=== PATIENT | female | born 1960 | race Caucasian/White ===

== ENCOUNTER → 2023-09-14 07:05 | Outpatient (REF) | payer BC, SELFPAY ==
[2023-09-14 07:57] LABS: % Eosinophils 5.9 % (0-6); % Lymphocytes 34.3 % (20.5-51.1); % Monocytes 8.2 % (1.7-9.3); % Neutrophils 50.6 % (42.2-75.2); Absolute Eosinophils 0.2 10^3/uL (0-0.7); Absolute Lymphocytes 1.3 10^3/uL (1.2-3.4); Absolute Monocytes 0.3 10^3/uL (0.1-0.6); Hematocrit 36.3 % (37.0-47.0); Hemoglobin 12.1 g/dL (12.0-16.0); Mean Corp Hgb Conc. 33.3 g/dL (33.0-37.0); Mean Corpuscular Hgb 31.8 pg (27.0-31.0); Mean Corpuscular Volume 95.3 fL (81.0-99.0); Mean Platelet Volume 10.1 fL (7.4-10.4); Nucleated Red Blood Cells % 0 %; Platelet Count 137 10^3/uL (130-400); Red Blood Cell Count 3.81 10^6/uL (4.20-5.40); Red Cell Dist. Width 13.5 % (11.5-14.5); White Blood Cell Count 3.9 10^3/uL (4.8-10.8)
[2023-09-14 08:29] LABS: ALT (SGPT) 34 U/L (0-35); AST (SGOT) 30 U/L (14-36); Albumin 4.2 g/dl (3.5-5.0); Alkaline Phosphatase 80 U/L (38-126); Blood Urea Nitrogen 19 mg/dl (7-17); Calcium 10.1 mg/dl (8.4-10.2); Carbon Dioxide 29 mmol/L (22-30); Chloride 104 mmol/L (98-107); Glucose 93 mg/dl (70-99); HDL Cholesterol 92 mg/dl; LDL Cholesterol, Calculated 83 mg/dl; Sodium 139 mmol/L (135-145); Total Bilirubin 0.5 mg/dl (0.2-1.3); Total Cholesterol 187 mg/dl (50-199); Total Protein 6.6 g/dl (6.3-8.2); Triglyceride 62 mg/dl (10-149); Very Low Density Lipoprotein 12 mg/dl (0-30); eGFR > 60.00
[2023-09-14 08:36] LABS: Potassium 4.3 mmol/L (3.5-5.1)
[2023-09-14 10:09] LABS: TSH Reflex To Free T4 1.86 uIU/ml (0.47-4.68)
== END ==
LOC: REG 07:05
PROVIDERS: ATTENDING PHYSICIAN Nurse Practitioner Adult Health
DX: Z00.00 Encounter for general adult medical examination without abnormal findings (principal)
CPT/HCPCS: 36415; 80053; 80061; 84443; 85025

== ENCOUNTER → 2023-10-18 14:48 | Outpatient (REF) | payer BC, SELFPAY ==
[2023-10-27 08:23] LABS: HPV, High Risk Not Detected; HPV, High Risk Source Cervical
== END ==
LOC: CPAP 14:48
PROVIDERS: ATTENDING PHYSICIAN Obstetrics & Gynecology Gynecology
DX: Z01.419 Encounter for gynecological examination (general) (routine) without abnormal findings (principal)
CPT/HCPCS: 87624

== ENCOUNTER → 2023-10-31 16:01 | Outpatient (REF) | payer BC, SELFPAY | LOC: WDC 16:01 | PROVIDERS: ATTENDING PHYSICIAN Obstetrics & Gynecology Gynecology | DX: Z12.31 Encounter for screening mammogram for malignant neoplasm of breast (principal); Z01.419 Encounter for gynecological examination (general) (routine) without abnormal findings | CPT/HCPCS: 77063; 77067 ==

== ENCOUNTER → 2024-09-12 07:04 | Outpatient (REF) | payer BC, SELFPAY ==
[2024-09-12 08:01] LABS: % Basophils 1.2 % (0-2); % Eosinophils 7.1 % (0-6); % Immature Granulocytes 0.3 % (0-0.5); % Lymphocytes 38.3 % (20.5-51.1); % Monocytes 7.1 % (1.7-9.3); Absolute Eosinophils 0.2 10^3/uL (0-0.7); Absolute Lymphocytes 1.2 10^3/uL (1.2-3.4); Absolute Monocytes 0.2 10^3/uL (0.1-0.6); Absolute Neutrophils 1.5 10^3/uL (1.4-6.5); Hematocrit 37.9 % (37.0-47.0); Hemoglobin 12.5 g/dL (12.0-16.0); Mean Corpuscular Hgb 31.3 pg (27.0-31.0); Mean Platelet Volume 9.9 fL (7.4-10.4); Nucleated Red Blood Cells % 0 %; Platelet Count 138 10^3/uL (130-400); Red Blood Cell Count 3.99 10^6/uL (4.20-5.40); Red Cell Dist. Width 13.3 % (11.5-14.5); White Blood Cell Count 3.2 10^3/uL (4.8-10.8)
[2024-09-12 08:15] LABS: ALT (SGPT) 27 U/L (0-35); AST (SGOT) 28 U/L (14-36); Albumin 4.1 g/dl (3.5-5.0); Alkaline Phosphatase 90 U/L (38-126); Blood Urea Nitrogen 17 mg/dl (7-17); Calcium 10.1 mg/dl (8.4-10.2); Carbon Dioxide 29 mmol/L (22-30); Chloride 107 mmol/L (98-107); Glucose 92 mg/dl (70-99); HDL Cholesterol 97 mg/dl; LDL Cholesterol, Calculated 93 mg/dl; Potassium 4.5 mmol/L (3.5-5.1); Sodium 142 mmol/L (135-145); Total Bilirubin 0.6 mg/dl (0.2-1.3); Total Cholesterol 201 mg/dl (50-199); Total Protein 6.6 g/dl (6.3-8.2); Triglyceride 58 mg/dl (10-149); Very Low Density Lipoprotein 11 mg/dl (0-30); eGFR > 60.00
[2024-09-12 08:45] LABS: TSH Reflex To Free T4 1.46 uIU/ml (0.47-4.68)
== END ==
LOC: REG 07:04
PROVIDERS: ATTENDING PHYSICIAN Nurse Practitioner Adult Health
DX: Z00.00 Encounter for general adult medical examination without abnormal findings (principal)
CPT/HCPCS: 36415; 80053; 80061; 84443; 85025

== ENCOUNTER 2024-10-17 08:29 | Emergency (ER) | payer BC, SELFPAY ==
[2024-10-17 08:31] VITALS: BP 159/94
--- NOTE | 2024-10-17 08:48 | ED.MUSCINJ ---
HPI-Injury
General
Chief Complaint: Musculo-Skeletal Complaint
Source: patient
Exam Limitations: none
Time Seen by Provider: 10/17/24 08:34
History of Present Illness-Injury
Initial Injury comments:
64-year-old female otherwise healthy presents complaining of worsening bilateral neck pain that radiates into the skull for the past 6 days. She was seen at an urgent care and was prescribed diclofenac. She has been taking this without relief.
She denies arm numbness or weakness. No associated chest pain or fever. She states she is having trouble sleeping because of the stiffness as well as moving her neck. No known injury. Note chest pain or shortness of breath. No other complaints
at this time
Past History
Past History
ED Past Medical History: None
ED Past Surgical History: and Other
Social History
Tobacco: Non-smoker
Phy Exam
Physical Exam
Physical Exam:
General: Well-appearing female no acute respiratory distress
HEENT normocephalic atraumatic
Musculoskeletal exam: Diffuse paraspinous tenderness bilaterally about the cervical spine and the base of the skull. She is also tender over the midline of the cervical spine. There is decreased range of motion in all directions of the cervical
spine good range of motion all extremities
Neurologic: Good strength to the upper lower extremities. No meningeal signs
Heart: Regular rate and rhythm
Lungs: Clear
Injury Course
Orders/Labs/Results
Orders:
Orders
10/17/24 08:45
Diazepam [Valium] 5 mg PO NOW STA
Ketorolac [Toradol] 30 mg IV NOW STA
CR Cervical Spine 2 or 3 Vw Urgent
Comment:
Reason For Exam: neck pain
10/17/24 09:13
Ketorolac [Toradol] 30 mg IM NOW STA
MDM/Problems Addressed
Differential Diagnosis Includes:
Neck pain. Likely muscular spasm. Pain not improving with diclofenac. Motion is limited. She is afebrile no meningeal signs. Do not suspect meningitis. The pain from her neck is radiating to the front of her head. Question possible neuralgia.
Will treat symptomatically with Toradol and Valium
*Critical Care Note
Total Time (30-74mins, 75-104mins- exclusive of procedures): Not Applicable
Update Note
Update Note:
X-ray shows degenerative disc disease pronounced at C5 and C6. Patient reexamined resting more comfortably. Suspect cervical strain as source of her discomfort. Will prescribe Valium and prednisone for her at home. She has orthopedic follow-up
in 2 days
ED Attending Note
-
Portions of this chart may have been created with voice recognition software.� Occasional wrong word or��sound alike� substitutions may have occurred due to the inherent limitations of voice recognition software.
Discharge Plan
Departure
Patient Disposition: Home (Routine Discharge)
Date of Disposition: 10/17/24
Time of Disposition: 10:18
Patient with high blood pressure during this ER visit?: No
Discharge Problem:
Cervical strain
Instructions: Muscle and Bone Pain (DC)
Prescriptions:
New
diazepam [Valium] 5 mg tablet
5 mg PO TID PRN (Reason: muscle spasm) Qty: 10 0RF
prednisone 10 mg Tablet
See Rx Instructions .ROUTE .COMPLEX Qty: 30 0RF
Rx Instructions:
Take By Mouth:
40 mg daily x3 days, 30 mg daily x3 days,
20 mg daily x3 days, 10 mg daily x3 days.
Referrals:
Maria L Parikh CRNP [Family Provider] -
Activity Restrictions/Additional Instructions:
Continue with warm compresses. Use muscle relaxer and steroid as directed. Keep your appointment with the orthopedic team. Return if needed otherwise
Interventions
Interventions:
*Risk Screen - Suicide Last Done: 10/17/24 08:33
*General Assessment Last Done: 10/17/24 08:33
*Neglect/Abuse Screening Last Done: 10/17/24 09:24
*ED- Fall Risk Assessment Last Done: 10/17/24 09:22
*ED COVID-19 Vaccine History Last Done: 10/17/24 09:22
ED-Musculoskeletal Assessment Last Done: 10/17/24 09:23
Discharge Date and Time
Print Language: [id number]
[2024-10-17] MEDS: VALIUM 5 MG PO (09:18)
[2024-10-17] MEDS: TORADOL 30 MG IM (09:18)
[2024-10-17 09:21] VITALS: BMI 25.3
== END 2024-10-17 10:31 | disposition home or self-care (01) ==
LOC: EMR 08:29
PROVIDERS: EMERGENCY PHYSICIAN Emergency Medicine; FAMILY PHYSICIAN Nurse Practitioner Adult Health
DX: S16.1XXA Strain of muscle, fascia and tendon at neck level, initial encounter (principal); X58.XXXA Exposure to other specified factors, initial encounter; M50.322 Other cervical disc degeneration at C5-C6 level
CPT/HCPCS: 96372; 99284; 72040

== ENCOUNTER → 2024-10-23 06:37 | Outpatient (REF) | payer BC, SELFPAY | LOC: MRI 06:37 | PROVIDERS: ATTENDING PHYSICIAN Pain Medicine Interventional Pain Medicine; FAMILY PHYSICIAN Nurse Practitioner Adult Health | DX: M54.12 Radiculopathy, cervical region (principal) | CPT/HCPCS: 72141 ==

== ENCOUNTER 2024-12-10 11:21 | Outpatient (RCR) | payer BC, SELFPAY | END 2024-12-10 23:59 | disposition home or self-care (01) | LOC: RPT 11:21 | PROVIDERS: ATTENDING PHYSICIAN Pain Medicine Interventional Pain Medicine; FAMILY PHYSICIAN Nurse Practitioner Adult Health | DX: M54.12 Radiculopathy, cervical region (principal); Z73.6 Limitation of activities due to disability | CPT/HCPCS: 97110; 97162 ==

== ENCOUNTER 2024-12-24 16:18 | Outpatient (RCR) | payer BC, SELFPAY | END 2024-12-24 23:59 | disposition home or self-care (01) | LOC: RPT 16:18 | PROVIDERS: ATTENDING PHYSICIAN Pain Medicine Interventional Pain Medicine; FAMILY PHYSICIAN Nurse Practitioner Adult Health | DX: M54.12 Radiculopathy, cervical region (principal); Z73.6 Limitation of activities due to disability | CPT/HCPCS: 97110; 97140 ==

== ENCOUNTER → 2024-12-25 11:56 | Outpatient (REF) | payer BC, SELFPAY | LOC: WDC 11:56 | PROVIDERS: ATTENDING PHYSICIAN Obstetrics & Gynecology Gynecology; FAMILY PHYSICIAN Nurse Practitioner Adult Health | DX: Z12.39 Encounter for other screening for malignant neoplasm of breast (principal); Z12.31 Encounter for screening mammogram for malignant neoplasm of breast | CPT/HCPCS: 77063; 77067 ==

== ENCOUNTER → 2025-01-10 06:40 | Outpatient (REF) | payer BC, SELFPAY | LOC: MRI 06:40 | PROVIDERS: ATTENDING PHYSICIAN Pain Medicine Interventional Pain Medicine; FAMILY PHYSICIAN Nurse Practitioner Adult Health | DX: M54.16 Radiculopathy, lumbar region (principal) | CPT/HCPCS: 72148 ==